=== PATIENT | male | born 1950 | race African-American/Black ===

== ENCOUNTER 2019-04-14 09:49 | Emergency (ER) | payer MEDICARE ==
[2019-04-14 10:56] LABS: #Eosinphils 0.2 thou/uL (0.0-0.7); #Lymphocytes 1.6 thou/uL (1.20-3.40); #Monocytes 0.3 thou/uL (0.11-0.59); #Neutrophils 1.5 thou/uL (1.40-6.50); %Basophils 1.1 % (0.0-1.0); %Eosinophils 5.6 % (0.0-10.0); %Lymphocytes 44.7 % (21.0-51.0); %Monocytes 8.6 % (0.0-10.0); Hemoglobin 13.1 g/dL (14.0-18.0); Mean Corpuscular Hemoglobin 27.5 pg (27.0-31.0); Mean Corpuscular Volume 83.3 fL (78.0-98.0); Mean Platelet Volume 7.8 fL (7.4-10.4); Platelet Count 173 thou/uL (130-400); RBC Distribution Width 13.3 % (11.5-14.5); Red Blood Cell (RBC) Count 4.76 mill/uL (4.70-6.10); White Blood Cell (WBC) Count 3.6 thou/uL (4.8-10.8)
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
[2019-04-14 11:13] LABS: ALT (SGPT) 11 U/L (8-55); AST (SGOT) 15 U/L (5-34); Albumin 3.8 g/dL (3.4-4.8); Alkaline Phosphatase 66 U/L (40-150); Anion Gap 10 mmol/L (10-20); BUN (Urea Nitrogen) 14 mg/dL (8.4-25.7); Calc. Creatinine Clearance 0 mL/min (70-130); Calcium 8.9 mg/dL (7.8-10.44); Carbon Dioxide 27 mmol/L (23-31); Chloride 106 mmol/L (98-107); Estimated GFR-MDRD 74; Globulin 3.2 g/dL (2.4-3.5); Glucose 117 mg/dL (80-115); Potassium 3.3 mmol/L (3.5-5.1); Sodium 140 mmol/L (136-145)
[2019-04-14] MEDS ORDERED: Potassium Chloride 20 MEQ TAB ONE (11:22)
== END 2019-04-14 11:28 | disposition home or self-care (01) ==
LOC: MADERS 09:49
DX: I10 Essential (primary) hypertension (principal); R94.31 Abnormal electrocardiogram [ECG] [EKG]; E87.6 Hypokalemia; Z79.899 Other long term (current) drug therapy
CPT/HCPCS: 71045; 80053; 84484; 85025

== ENCOUNTER 2022-10-13 12:15 | Emergency (ER) | payer MEDICARE, SELFPAY ==
[2022-10-13 13:17] LABS: Band 3 % (5-11); Eosinophils 1 % (0-10); Lymphocytes 31 % (21-51); MDiff Complete? YES; Mean Corpuscular HGB CONC 31.7 g/dL (32.0-36.0); Mean Corpuscular Hemoglobin 26.3 pg (27.0-31.0); Mean Corpuscular Volume 82.9 fl (78.0-98.0); Mean Platelet Volume 10.5 fL (7.4-10.4); Monocytes 11 % (0-10); Neutrophil 54 % (42-75); Platelet Count 192 10x3/uL (130-400); Platelet Morphology Comment Appears Adequate; RBC Distribution Width 13.6 % (11.5-14.5); RBC Morphology Normal; White Blood Cell (WBC) Count 4.1 10x3/uL (4.8-10.8)
[2022-10-13 13:18] LABS: ALT (SGPT) 23 U/L (8-55); AST (SGOT) 17 U/L (5-34); Albumin 2.8 g/dL (3.4-4.8); Alkaline Phosphatase 67 U/L (40-110); Anion Gap 14 mmol/L (10-20); BUN (Urea Nitrogen) 20 mg/dL (8.4-25.7); Bilirubin, Total 2.3 mg/dL (0.2-1.2); Calc. Creatinine Clearance 0 mL/min (70-130); Calcium 7.3 mg/dL (7.8-10.44); Carbon Dioxide 18 mmol/L (23-31); Chloride 114 mmol/L (98-107); Estimated GFR 77; Globulin 2.1 g/dL (2.4-3.5); Glucose 99 mg/dL (83-110); Potassium 2.8 mmol/L (3.5-5.1); Protein, Total 4.9 g/dL (5.8-8.1); Sodium 143 mmol/L (136-145)
[2022-10-13 13:36] LABS: CKMB 1.3 ng/mL (0-6.6)
[2022-10-13] MEDS ORDERED: Furosemide 40 MG/4 ML VIAL ONE (13:40)
[2022-10-13] MEDS ORDERED: Potassium Chloride 20 MEQ TAB ONE (13:40)
[2022-10-13] MEDS ORDERED: Aspirin 325 MG TAB ONE (13:40)
[2022-10-13 13:56] LABS: Magnesium 2.1 mg/dL (1.6-2.6)
[2022-10-13 16:43] LABS: CKMB 1.4 ng/mL (0-6.6)
== END 2022-10-13 19:00 | disposition short-term general hospital (02) ==
LOC: MADERS 12:15
DX: I11.0 Hypertensive heart disease with heart failure (principal); I50.9 Heart failure, unspecified; I48.20 Chronic atrial fibrillation, unspecified; E87.6 Hypokalemia; R77.8 Other specified abnormalities of plasma proteins; Z79.899 Other long term (current) drug therapy
CPT/HCPCS: 71045; 80053; 82553; 83735; 83880; 84484; 85025; 93005; 96374; J1940; J7620

== ENCOUNTER 2022-12-01 20:31 | Emergency (ER) | payer MEDICARE ==
[~2022-12-01 20:31] MED LIST: Iopamidol 370 76% 100 ML VIAL ONE
[2022-12-01 22:21] LABS: ALT (SGPT) 44 U/L (8-55); AST (SGOT) 32 U/L (5-34); Albumin 3.7 g/dL (3.4-4.8); Alkaline Phosphatase 105 U/L (40-110); Anion Gap 18 mmol/L (10-20); BUN (Urea Nitrogen) 27 mg/dL (8.4-25.7); Bilirubin, Total 3.9 mg/dL (0.2-1.2); Calc. Creatinine Clearance 0 mL/min (70-130); Carbon Dioxide 22 mmol/L (23-31); Chloride 105 mmol/L (98-107); Estimated GFR 52; Globulin 2.9 g/dL (2.4-3.5); Glucose 115 mg/dL (83-110); Lipase 46 U/L (8-78); Magnesium 2.3 mg/dL (1.6-2.6); Potassium 3.9 mmol/L (3.5-5.1); Protein, Total 6.6 g/dL (5.8-8.1); Sodium 141 mmol/L (136-145)
[2022-12-01 22:34] LABS: #Eosinphils 0.1 thou/uL (0.0-0.7); #Lymphocytes 1.2 thou/uL (1.20-3.40); #Monocytes 0.5 thou/uL (0.11-0.59); #Neutrophils 2.1 thou/uL (1.40-6.50); %Basophils 1.1 % (0.0-1.0); %Lymphocytes 31.2 % (21.0-51.0); %Monocytes 11.5 % (0.0-10.0); %Neutrophils 54.2 % (42.0-75.0); Hemoglobin 13.5 g/dL (14.0-18.0); Mean Corpuscular HGB CONC 32.8 g/dL (32.0-36.0); Mean Corpuscular Volume 79.4 fl (78.0-98.0); Mean Platelet Volume 8.9 fL (7.4-10.4); Platelet Count 194 10x3/uL (130-400); RBC Distribution Width 15.4 % (11.5-14.5); Red Blood Cell (RBC) Count 5.17 mill/uL (4.70-6.10); White Blood Cell (WBC) Count 3.9 10x3/uL (4.8-10.8)
[2022-12-01] MEDS ORDERED: Morphine 2 MG/ML VIAL ONE (22:57)
[2022-12-01] MEDS ORDERED: Furosemide 40 MG/4 ML VIAL ONE (23:48)
[2022-12-01] MEDS ORDERED: Furosemide 20 MG/2 ML VIAL ONE (23:48)
[2022-12-01] MEDS ORDERED: Sodium Chloride 0.9% 100 ML ONE (23:49)
[2022-12-02 00:03] LABS: SARS-CoV-2 NAA Rapid Test Not Detected (NotDetected)
[2022-12-02 01:43] LABS: Bilirubin Negative (Negative); Blood, Urine Trace (Negative); Clarity Clear (Clear); Glucose, Urine (Dipstick) Negative (Negative); Ketone, Urine Negative (Negative); Leukocyte Negative (Negative); Nitrite Negative (Negative); Protein, Urine (Dipstick) 30 mg/dL (Neg-Trace)
[2022-12-02 02:01] LABS: Troponin I 0.057 ng/mL (< 0.028)
[2022-12-02 02:08] LABS: Transitional Epithelial 0-3 HPF (None Seen); WBC/HPF 0-3 HPF (0-3)
[2022-12-02 02:09] LABS: Bacteria/HPF Rare-Few HPF (None Seen)
== END 2022-12-02 06:19 | disposition short-term general hospital (02) ==
LOC: MADERS 20:31
DX: I11.0 Hypertensive heart disease with heart failure (principal); I50.9 Heart failure, unspecified; D64.9 Anemia, unspecified; R77.8 Other specified abnormalities of plasma proteins; E78.5 Hyperlipidemia, unspecified; Z20.822 Contact with and (suspected) exposure to COVID-19; Z79.82 Long term (current) use of aspirin; Z79.01 Long term (current) use of anticoagulants
CPT/HCPCS: 71045; 74177; 80053; 81003; 81015; 82553; 83690; 83735; 83880; 84484; 85025; 87040; 87804; 93005; 96374; 96375; J1940; J2272; Q9967; U0002

== ENCOUNTER 2023-01-08 12:18 | Emergency (ER) | payer MEDICARE, SELFPAY ==
[2023-01-08 12:50] LABS: #Basophils 0.1 thou/uL (0.0-0.2); #Eosinphils 0.2 thou/uL (0.0-0.7); #Lymphocytes 1.3 thou/uL (1.20-3.40); #Monocytes 0.5 thou/uL (0.11-0.59); %Basophils 1.8 % (0.0-1.0); %Lymphocytes 26.3 % (21.0-51.0); %Monocytes 9.5 % (0.0-10.0); %Neutrophils 59.5 % (42.0-75.0); Hemoglobin 12.7 g/dL (14.0-18.0); Mean Corpuscular HGB CONC 31.4 g/dL (32.0-36.0); Mean Corpuscular Hemoglobin 26.1 pg (27.0-31.0); Mean Platelet Volume 11.4 fL (7.4-10.4); Platelet Count 168 10x3/uL (130-400); RBC Distribution Width 17.2 % (11.5-14.5); Red Blood Cell (RBC) Count 4.86 mill/uL (4.70-6.10)
[2023-01-08 13:02] LABS: ALT (SGPT) 32 U/L (8-55); AST (SGOT) 19 U/L (5-34); Albumin 3.5 g/dL (3.4-4.8); Alkaline Phosphatase 169 U/L (40-110); Anion Gap 12 mmol/L (10-20); BUN (Urea Nitrogen) 15 mg/dL (8.4-25.7); Bilirubin, Total 3.2 mg/dL (0.2-1.2); Calc. Creatinine Clearance 0 mL/min (70-130); Calcium 8.9 mg/dL (7.8-10.44); Carbon Dioxide 26 mmol/L (23-31); Chloride 106 mmol/L (98-107); Estimated GFR 55; Globulin 2.9 g/dL (2.4-3.5); Glucose 114 mg/dL (83-110); Magnesium 2.1 mg/dL (1.6-2.6); Potassium 3.5 mmol/L (3.5-5.1); Protein, Total 6.4 g/dL (5.8-8.1); Sodium 140 mmol/L (136-145)
[2023-01-08] MEDS ORDERED: Furosemide 40 MG/4 ML VIAL ONE (13:03)
[2023-01-09] MEDS ORDERED: hydrALAZINE 10 MG TAB ONE (07:58)
[2023-01-09] MEDS ORDERED: Aspirin Chewable 81 MG TAB ONE (07:58)
[2023-01-09] MEDS ORDERED: Carvedilol 6.25 MG TAB ONE (07:58)
[2023-01-09] MEDS ORDERED: Furosemide 40 MG/4 ML VIAL ONE ×2 (07:58→08:00)
[2023-01-09 08:02] LABS: Anion Gap 12 mmol/L (10-20); BUN (Urea Nitrogen) 14 mg/dL (8.4-25.7); Calc. Creatinine Clearance 0 mL/min (70-130); Calcium 8.9 mg/dL (7.8-10.44); Carbon Dioxide 26 mmol/L (23-31); Chloride 106 mmol/L (98-107); Estimated GFR 62; Glucose 102 mg/dL (83-110); Potassium 3.4 mmol/L (3.5-5.1); Sodium 141 mmol/L (136-145)
[2023-01-09] MEDS ORDERED: Cephalexin 250 MG CAP PO SCH (09:15)
[2023-01-09] MEDS ORDERED: Apixaban 5 MG TAB PO SCH (09:15)
[2023-01-09] MEDS ORDERED: Isosorbide Dinitrate 10 MG TAB PO SCH (09:15)
== END 2023-01-09 13:01 | disposition short-term general hospital (02) ==
LOC: MADERS 12:18
DX: I11.0 Hypertensive heart disease with heart failure (principal); I50.9 Heart failure, unspecified; E78.5 Hyperlipidemia, unspecified; Z79.899 Other long term (current) drug therapy; Z79.82 Long term (current) use of aspirin; Z79.01 Long term (current) use of anticoagulants
CPT/HCPCS: 71045; 80048; 80053; 83735; 83880; 84484; 85025; 93005; 94760; 96374; 96376; J1940